=== PATIENT | male | born 1985 | race African-American/Black ===

== ENCOUNTER 2020-06-18 08:30 | Emergency (ER) | payer MEDICAID ==
[~2020-06-18] VITALS: Ht 182.9 cm; Wt 75.7 kg
[2020-06-18 08:39] VITALS: BP_SYST 133
[2020-06-18] MEDS ORDERED: LIDOCAINE 1%, 20 ML MDV 20 ML ONE (09:43)
[2020-06-18 10:02] VITALS: BP_SYST 133
== END 2020-06-18 10:02 | disposition home or self-care (01) ==
LOC: SED 08:30
DX: L02.416 Cutaneous abscess of left lower limb (principal); R03.0 Elevated blood-pressure reading, without diagnosis of hypertension
CPT/HCPCS: 10060; 99283; J2001

== ENCOUNTER 2020-06-20 07:58 | Emergency (ER) | payer MEDICAID ==
[~2020-06-20] VITALS: Ht 185.4 cm; Wt 77.1 kg
[2020-06-20 08:06] VITALS: BP_SYST 146
[2020-06-20 08:24] VITALS: BP_SYST 146
== END 2020-06-20 08:20 | disposition home or self-care (01) ==
LOC: SED 07:58
DX: Z48.00 Encounter for change or removal of nonsurgical wound dressing (principal)
CPT/HCPCS: 99281